=== PATIENT | female | born 1960 | race Caucasian/White ===

== ENCOUNTER 2016-10-23 09:15 | Outpatient (CLI) | payer OTHER | END 2016-10-23 09:16 | disposition home or self-care (01) | DX: E78.5 Hyperlipidemia, unspecified (principal) ==

== ENCOUNTER 2017-11-20 09:08 | Emergency (ER) | payer OTHER ==
[2017-11-20] MEDS ORDERED: ONDANSETRON ODT 4 MG TABLET TL STA (10:40)
[2017-11-20 10:41] LABS: BILIRUBIN,URINE NEGATIVE (NEGATIVE); GLUCOSE, URINE (UA) NEGATIVE (NEGATIVE); KETONES,URINE (UA) TRACE mg/dL (NEGATIVE); LEUKOCYTE ESTERASE, URINE NEGATIVE (NEGATIVE); NITRITE,URINE NEGATIVE (NEGATIVE); OCCULT BLOOD,URINE LARGE (NEGATIVE); PH,URINE 5.5 PH (5.0-7.5); PROTEIN,URINE 100 mg/dL (NEGATIVE); UROBILINOGEN,URINE 0.2 (NORMAL) E.U./dL (NORMAL)
[2017-11-20 10:47] LABS: CLARITY,URINE HAZY (CLEAR)
[2017-11-20 10:56] LABS: BACTERIA,URINE Moderate /HPF (None Seen); RBC,URINE TNTC /HPF (0-5); SQUAMOUS EPITHELIAL CELL,UR RARE Squamous (<= Few)
[2017-11-20 11:02] LABS: BASOPHILS # (AUTO) 0.1 10^3/uL (0.0-0.1); BASOPHILS % (AUTO) 0.4 %; EOSINOPHILS % (AUTO) 0.4 %; HGB - HEMOGLOBIN 15.1 g/dL (12.0-16.0); LYMPHOCYTES # (AUTO) 1.9 10^3/uL (1.5-3.5); LYMPHOCYTES % (AUTO) 14.9 %; MEAN CORPUSCULAR HEMOGLOBIN 28.9 pg (27.0-31.0); MEAN CORPUSCULAR HGB CONC 34.1 g/dL (32.0-36.0); MEAN CORPUSCULAR VOLUME 84.6 fL (81.0-99.0); MEAN PLATELET VOLUME 7.8 fL (7.9-10.8); MONOCYTES # (AUTO) 0.5 10^3/uL (0.0-1.0); MONOCYTES % (AUTO) 3.8 %; NEUTROPHILS # (AUTO) 10.2 10^3/uL (1.5-6.6); NEUTROPHILS % (AUTO) 80.5 %; PLT - PLATELET COUNT 249 10^3/uL (130-450); RED BLOOD COUNT 5.25 10^6/uL (4.20-5.40); RED CELL DISTRIBUTION WIDTH 13.3 % (12.0-15.0); WHITE BLOOD COUNT 12.6 x10^3/uL (4.8-10.8)
[2017-11-20 11:14] LABS: ALBUMIN 4.7 g/dL (3.2-5.5); ALBUMIN/GLOBULIN RATIO 1.3 (1.0-2.2); BILIRUBIN,TOTAL 0.7 mg/dL (0.2-1.0); CALCIUM 9.8 mg/dL (8.5-10.3); CREATININE 0.8 mg/dL (0.4-1.0); TOTAL PROTEIN 8.2 g/dL (6.7-8.2)
[2017-11-20] MEDS ORDERED: KETOROLAC 60 MG/2 ML VIAL IVP STA ×2 (11:21→14:00)
[2017-11-20] MEDS ORDERED: ONDANSETRON 4 MG/2 ML VIAL IVP STA (11:21)
[2017-11-20] MEDS ORDERED: SODIUM CHLORIDE 0.9% 1,000 ML IV ONE (11:21)
[2017-11-20] MEDS ORDERED: cefTRIAXone 1 GM in SODIUM CHLORIDE 0.9% MINIBAG 100 ML IV STA (11:22)
--- NOTE | 2017-11-20 11:25 | ED Physician Documentation ---
PD HPI ABD PAIN - Stated complaint Stated Complaint: VOMITING/BACK PX/KIDNEY PX - Chief complaint Chief Complaint: Abd Pain - History obtained from History obtained from: Patient - History of Present Illness Timing - onset: Yesterday Timing - duration: Hours Timing - details: Gradual onset, Still present Quality: Cramping, Sharp, Pain Location: RUQ, Suprapubic Radiation: Right flank Improved by: Other (nothing) Worsened by: Other (nothing) Associated symptoms: Nausea, Vomiting, Hematuria Similar symptoms before: Diagnosis (renal lithiasis) Recently seen: Not recently seen - Additional information Additional information: 49-year-old female with a prior history of renal lithiasis has developed symptoms of right flank pain and hematuria. She has had some nausea and vomiting associated with this and she has not had a fever. She did have her 1 cm stone removed and a stent placed back in July and has resolved her symptoms associated with that episode. Review of Systems Constitutional: denies: Fever, Chills Eyes: denies: Decreased vision Ears: denies: Ear pain Nose: denies: Congestion Throat: denies: Sore throat Cardiac: denies: Chest pain / pressure, Palpitations Respiratory: denies: Dyspnea, Cough GI: reports: Abdominal Pain, Nausea, Vomiting : reports: Hematuria. denies: Dysuria, Frequency Skin: denies: Rash, Lesions Musculoskeletal: reports: Back pain. 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 - Present Medications Home Medications: Ambulatory Orders Medication Instructions Recorded Confirmed HYDROcod/ACETAM 5/325 [[place] 5/325] 1 - 2 ea PO Q6H PRN #15 tablet 07/15/1704/24 Ibuprofen [Motrin] 400 mg PO Q6H PRN #30 tablet 07/15/17 07/16/17 Pravastatin [Pravachol] 1 tab PO DAILY 07/15/17 07/16/17 Tamsulosin [Flomax] 0.4 mg PO DAILY #7 capsule 07/15/17 07/16/17 Ketorolac [Toradol] 10 mg PO Q6H PRN #30 tablet 07/16/17 oxyCODONE [Roxicodone] 5 mg PO Q4-6H #10 tablet 11/08/17 Sulfamethoxazole/Trimethoprim 1 each PO BID #14 tablet 11/20/17 [Sulfamethoxazole-Tmp Ds Tablet] oxyCODONE [Roxicodone] 5 mg PO Q4-6H #20 tablet 11/20/17 - Allergies Allergies/Adverse Reactions: Allergies Allergy/AdvReac Type Severity Reaction Status Date / Time No Known Drug Allergies Allergy Verified 11/20/17 09:17 - Social History Does the pt smoke?: No Smoking Status: Never smoker Does the pt drink ETOH?: No Does the pt have substance abuse?: No PD ED PE NORMAL - Vitals Vital signs reviewed: Yes (hypertensive mild ) - General General: No acute distress, Well developed/nourished - HEENT HEENT: Atraumatic, PERRL, EOMI - Neck Neck: Supple, no meningeal sign - Cardiac Cardiac: RRR, No murmur - Respiratory Respiratory: No respiratory distress - Abdomen Abdomen: Soft, Non tender - Back Back: No spinal TTP, Other (bilateral CVA tenderness is mild ) - Derm Derm: Normal color, Warm and dry, No rash - Extremities Extremities: No deformity, No edema - Neuro Neuro: Alert and oriented X 3, No motor deficit, No sensory deficit, Normal speech Eye Opening: Spontaneous Motor: Obeys Commands Verbal: Oriented GCS Score: 15 - Psych Psych: Normal mood, Normal affect Results - Vitals Vitals: Vital Signs - 24 hr 11/20/17 11/20/17 11/20/17 09:12 11:06 13:42 Temperature 36.6 C 36.3 C L 37.5 C Heart Rate 88 57 L 74 Respiratory 20 19 16 Rate Blood Pressure 128/82 H 135/68 H 147/68 H O2 Saturation 98 99 100 Oxygen O2 Source Room air - Labs Labs: Laboratory Tests 11/20/17 11/20/17 11/20/17 10:25 10:58 10:58 WBC 12.6 H RBC 5.25 Hgb 15.1 Hct 44.4 MCV 84.6 MCH 28.9 MCHC 34.1 RDW 13.3 Plt Count 249 MPV 7.8 L Neut # 10.2 H Lymph # 1.9 [place] # 0.5 Eos # 0.0 Baso # 0.1 Absolute Nucleated RBC 0.00 Nucleated RBC % 0.0 Sodium 139 Potassium 3.9 Chloride 102 Carbon Dioxide 23 Anion Gap 14.0 H BUN 20 Creatinine 0.8 Estimated GFR (MDRD) 74 L Glucose 138 H Calcium 9.8 Total Bilirubin 0.7 AST 26 ALT 25 Alkaline Phosphatase 76 Total Protein 8.2 Albumin 4.7 Globulin 3.5 Albumin/Globulin Ratio 1.3 Lipase 19 L Urine Color DARK YELLOW Urine Clarity HAZY Urine pH 5.5 Ur Specific [place] >=1.030 H Urine Protein 100 H Urine Glucose (UA) NEGATIVE Urine Ketones TRACE Urine Occult Blood LARGE H Urine Nitrite NEGATIVE Urine Bilirubin NEGATIVE Urine Urobilinogen 0.2 (NORMAL) Ur Leukocyte Esterase NEGATIVE Urine RBC TNTC H Urine WBC 0-3 Ur Squamous Epith Cells RARE Squamous Urine Bacteria Moderate H Ur Microscopic Review INDICATED Urine Culture Comments INDICATED - Rads (name of study) CT abd/pel without Radiology: Prelim report reviewed (Impression: 1. There is a calculus in the distal right ureter with associated right hydronephrosis and hydroureter. There are 2 tiny nonobstructing calculi in the left kidney.), EMP read indepedently, See rad report PD MEDICAL DECISION MAKING - ED course Complexity details: reviewed old records, reviewed results, re-evaluated patient , considered differential, d/w patient, d/w family ED course: 49-year-old female with a history of recurrent renal lithiasis and ureteral lithiasis has developed acute signs and symptoms again of ureterolithiasis. She does have a 4.2 mm stone in the right distal ureter. Here in the emergency department she is treated with intravenous saline and Toradol with improvement in her pain. She is also given a dose of Rocephin intravenously as there is a fair amount of bacteria in this otherwise usable sample. There are no white blood cells in the urine. A culture is being done. Departure - Departure Disposition: 01 Home, Self Care Clinical Impression: Ureterolithiasis Condition: Stable Instructions: ED Stone Renal W Colic Follow-Up: Trent Tiwari DO [Primary Care Provider] - Prescriptions: oxyCODONE [Roxicodone] 5 mg PO Q4-6H #20 tablet Sulfamethoxazole/Trimethoprim [Sulfamethoxazole-Tmp Ds Tablet] 1 each PO BID # 14 tablet
--- NOTE | 2017-11-20 12:02 | CT Report ---
EXAM: CT ABDOMEN AND PELVIS (CT KUB) EXAM DATE: 11/20/2017 11:42 AM. CLINICAL HISTORY: Right flank pain. COMPARISONS: 07/15/2017. TECHNIQUE: Routine axial helical CT imaging was performed through the abdomen and pelvis without IV c ontrast. Reconstructions: Coronal and sagittal. In accordance with CT protocol optimization, one or more of the following dose reduction techniques w ere utilized for this exam: automated exposure control, adjustment of mA and/or KV based on patient s ize, or use of iterative reconstructive technique. FINDINGS: Lung Bases: Unremarkable. Right Kidney/Ureter: There is a calculus measuring approximately 0.3 x 0.7 cm in the distal right ure ter series 5 image 86 and series 3 image 73. There is mild to moderate right hydronephrosis and hydro ureter. Left Kidney/Ureter: There is a tiny nonobstructing calculus in the left kidney series 3 image 42 and another on series 5 image 36. Negative for hydronephrosis. Other Solid Organs: Noncontrast images of the solid organs are grossly unremarkable. Gallbladder/Bile Ducts: Unremarkable. Peritoneal Cavity: No free fluid, free air or enedelia adenopathy. Bowel is grossly unremarkable. Pelvic Organs: No bladder stones or wall thickening. Noncontrast images of the visualized pelvic orga ns are unremarkable. Vasculature: Unremarkable. Other: Stable small sclerotic lesion in the anterior aspect of L3 measuring 0.5 cm. IMPRESSION: 1. There is a calculus in the distal right ureter with associated right hydronephrosis and hydrourete r. 2. There are 2 tiny nonobstructing calculi in the left kidney. [facility] Referring Provider Line: [phone] SITE ID: [id number]
[2017-11-20 14:30] VITALS: BP 144/68
== END 2017-11-20 15:15 | disposition home or self-care (01) ==
LOC: ED 09:08
DX: N13.2 Hydronephrosis with renal and ureteral calculous obstruction (principal)
CPT/HCPCS: 36415; 74176; 80053; 81001; 83690; 85025; 87086; 96361; 96365; 96375; 96376; 99283; 99284; Q0162; 81003

== ENCOUNTER 2018-01-29 15:27 | Outpatient (CLI) | payer OTHER | END 2018-01-29 15:28 | LOC: LAB.WCP 15:27 | PROVIDERS: ATTEND Family Medicine | DX: R35.0 Frequency of micturition (principal) | CPT/HCPCS: 87086 ==

== ENCOUNTER 2018-02-09 08:01 | Outpatient (CLI) | payer OTHER ==
[2018-02-09 08:19] LABS: BASOPHILS % (AUTO) 0.5 %; EOSINOPHILS # (AUTO) 0.2 10^3/uL (0.0-0.7); EOSINOPHILS % (AUTO) 3.2 %; HGB - HEMOGLOBIN 14.2 g/dL (12.0-16.0); LYMPHOCYTES # (AUTO) 1.7 10^3/uL (1.5-3.5); LYMPHOCYTES % (AUTO) 26.5 %; MEAN CORPUSCULAR HEMOGLOBIN 29.5 pg (27.0-31.0); MEAN CORPUSCULAR HGB CONC 34.2 g/dL (32.0-36.0); MEAN CORPUSCULAR VOLUME 86.1 fL (81.0-99.0); MEAN PLATELET VOLUME 7.7 fL (7.9-10.8); MONOCYTES # (AUTO) 0.4 10^3/uL (0.0-1.0); MONOCYTES % (AUTO) 5.5 %; NEUTROPHILS # (AUTO) 4.2 10^3/uL (1.5-6.6); NEUTROPHILS % (AUTO) 64.3 %; PLT - PLATELET COUNT 217 10^3/uL (130-450); RED BLOOD COUNT 4.81 10^6/uL (4.20-5.40); RED CELL DISTRIBUTION WIDTH 13.4 % (12.0-15.0); WHITE BLOOD COUNT 6.5 x10^3/uL (4.8-10.8)
[2018-02-09 08:35] LABS: ALBUMIN 4.1 g/dL (3.2-5.5); ALBUMIN/GLOBULIN RATIO 1.4 (1.0-2.2); ALKALINE PHOSPHATASE 69 IU/L (42-121); ALT ALANINE AMINOTRANSFERASE 23 IU/L (10-60); AST ASPARTATE AMINOTRANSFERASE 21 IU/L (10-42); BILIRUBIN,TOTAL 0.5 mg/dL (0.2-1.0); BUN - BLOOD UREA NITROGEN 17 mg/dL (6-20); CALCIUM 8.9 mg/dL (8.5-10.3); CARBON DIOXIDE - CO2 29 mmol/L (21-32); CHLORIDE 101 mmol/L (101-111); CHOL/HDL RATIO 4.4 (<4.4); CHOLESTEROL 209 mg/dL; CREATININE 0.8 mg/dL (0.4-1.0); GFR - MDRD 74 (>89); GLUCOSE 107 mg/dL (70-100); HB2 TOTAL 15.4 g/dL; HDL CHOLESTEROL 48 mg/dL; HEMOGLOBIN A1C 0.56 g/dL; HEMOGLOBIN A1C % 5.5 % (4.6-6.2); LDL CHOLESTEROL,CALCULATED 124 mg/dL; LDL/HDL RATIO 2.6 (<4.4); SODIUM 136 mmol/L (135-145); TOTAL PROTEIN 7.1 g/dL (6.7-8.2); VLDL CHOLESTEROL 37 mg/dL
== END 2018-02-09 08:02 | disposition home or self-care (01) ==
LOC: LAB 08:01
PROVIDERS: ATTEND Family Medicine
DX: Z00.00 Encounter for general adult medical examination without abnormal findings (principal)
CPT/HCPCS: 36415; 80053; 80061; 83036; 83721; 84443; 85025

== ENCOUNTER 2018-04-22 08:34 | Day surgery (SDC) | payer OTHER ==
[2018-04-22] MEDS ORDERED: MIDAZOLAM 2 MG/2 ML VIAL IVP ONE (08:35)
[2018-04-22] MEDS ORDERED: ONDANSETRON 4 MG/2 ML VIAL IVP ONE (08:35)
[2018-04-22] MEDS ORDERED: fentaNYL 250 MCG/5 ML VIAL IVP ONE (08:35)
[2018-04-22] MEDS ORDERED: LACTATED RINGERS 1,000 ML IV ONE (08:50)
[2018-04-22 11:54] VITALS: BP 132/88
== END 2018-04-22 08:35 | disposition home or self-care (01) ==
LOC: SDS 08:34
PROVIDERS: ATTEND Internal Medicine
PROC: 0DBL8ZZ Excision of Transverse Colon, Via Natural or Artificial Opening Endoscopic (ICD-10-PCS; 2018-04-22)
PROC: 0DBL8ZZ Excision of Transverse Colon, Via Natural or Artificial Opening Endoscopic (ICD-10-PCS; principal; 2018-04-22 10:00)
DX: Z12.11 Encounter for screening for malignant neoplasm of colon (principal); Z80.0 Family history of malignant neoplasm of digestive organs; D12.3 Benign neoplasm of transverse colon; K64.8 Other hemorrhoids
CPT/HCPCS: 45380; 45385; J3010; J7120

== ENCOUNTER 2018-09-11 09:25 | Outpatient (CLI) | payer OTHER ==
[2018-09-11 10:33] LABS: ALBUMIN 4.2 g/dL (3.2-5.5); ALBUMIN/GLOBULIN RATIO 1.2 (1.0-2.2); ALKALINE PHOSPHATASE 74 IU/L (42-121); ALT ALANINE AMINOTRANSFERASE 29 IU/L (10-60); AST ASPARTATE AMINOTRANSFERASE 23 IU/L (10-42); BILIRUBIN,TOTAL 1.1 mg/dL (0.2-1.0); BUN - BLOOD UREA NITROGEN 16 mg/dL (6-20); CALCIUM 9.2 mg/dL (8.5-10.3); CARBON DIOXIDE - CO2 29 mmol/L (21-32); CHLORIDE 100 mmol/L (101-111); CHOL/HDL RATIO 3.7 (<4.4); CHOLESTEROL 211 mg/dL; CREATININE 0.7 mg/dL (0.4-1.0); GFR - MDRD 86 (>89); GLUCOSE 104 mg/dL (70-100); HDL CHOLESTEROL 57 mg/dL; LDL CHOLESTEROL,CALCULATED 123 mg/dL; LDL/HDL RATIO 2.2 (<4.4); SODIUM 137 mmol/L (135-145); TOTAL PROTEIN 7.6 g/dL (6.7-8.2); VLDL CHOLESTEROL 31 mg/dL
[2018-09-11 11:46] LABS: HB2 TOTAL 15.8 g/dL; HEMOGLOBIN A1C 0.55 g/dL; HEMOGLOBIN A1C % 5.3 % (4.6-6.2)
== END 2018-09-11 09:26 | disposition home or self-care (01) ==
LOC: LAB 09:25
PROVIDERS: ATTEND Family Medicine
DX: R73.01 Impaired fasting glucose (principal); E78.5 Hyperlipidemia, unspecified; E03.9 Hypothyroidism, unspecified
CPT/HCPCS: 36415; 80053; 80061; 83036; 83721; 84443

== ENCOUNTER 2018-09-29 14:23 | Outpatient (CLI) | payer OTHER | END 2018-09-29 14:24 | disposition home or self-care (01) | LOC: NS 14:23 | PROVIDERS: ATTEND Family Medicine | DX: Z71.3 Dietary counseling and surveillance (principal); E78.5 Hyperlipidemia, unspecified; N20.0 Calculus of kidney | CPT/HCPCS: 97802 ==

== ENCOUNTER 2018-10-20 13:04 | Outpatient (CLI) | payer OTHER | END 2018-10-20 13:05 | disposition home or self-care (01) | LOC: NS 13:04 | PROVIDERS: ATTEND Family Medicine | DX: Z71.3 Dietary counseling and surveillance (principal); E78.5 Hyperlipidemia, unspecified; N20.0 Calculus of kidney | CPT/HCPCS: 97803 ==

== ENCOUNTER 2018-12-08 13:01 | Outpatient (CLI) | payer OTHER | END 2018-12-08 13:02 | disposition home or self-care (01) | LOC: NS 13:01 | PROVIDERS: ATTEND Family Medicine | DX: Z71.3 Dietary counseling and surveillance (principal); E78.5 Hyperlipidemia, unspecified; N20.0 Calculus of kidney | CPT/HCPCS: 97803 ==

== ENCOUNTER 2019-02-23 13:57 | Outpatient (CLI) | payer OTHER ==
--- NOTE | 2019-02-23 14:43 | XRAY Report ---
Reason: RENAL CALCULUS Procedure Date: 02/23/2019 Accession Number: [id number] / [id number] Procedure: XR - Abdomen 1 View X-Ray CPT Code: 89857 FULL RESULT: EXAM: ABDOMEN RADIOGRAPHY EXAM DATE: 02/23/2019 02:22 PM. CLINICAL HISTORY: RENAL CALCULUS. COMPARISON: ABDOMEN 1 VIEW 01/29/2018 3:41 PM. TECHNIQUE: 1 view. FINDINGS: Bowel Gas Pattern: Within normal limits. No dilated loops. Other: None. IMPRESSION: No candidate calcifications suspicious for renal calculi are identified. Previously seen linear calcification projecting over the pelvis has resolved. [facility]
== END 2019-02-23 13:58 | disposition home or self-care (01) ==
LOC: DI 13:57
PROVIDERS: ATTEND Urology
DX: N20.0 Calculus of kidney (principal)
CPT/HCPCS: 74018

== ENCOUNTER 2019-06-14 08:00 | Outpatient (CLI) | payer OTHER | END 2019-06-14 23:59 | disposition home or self-care (01) | LOC: LAB.WCP 08:00 | PROVIDERS: ATTEND Family Medicine | DX: M25.511 Pain in right shoulder (principal); M25.512 Pain in left shoulder | CPT/HCPCS: 36415; 85651; 86140 ==

== ENCOUNTER 2019-10-07 08:00 | Outpatient (CLI) | payer OTHER ==
--- NOTE | 2019-10-07 16:47 | XRAY Report ---
Reason: COUGH Procedure Date: 10/07/2019 Accession Number: [id number] / [id number] Procedure: WCP - Chest 2 View X-Ray CPT Code: 48518 Final Report FULL RESULT: EXAM: CHEST RADIOGRAPHY 2 VIEWS EXAM DATE: 10/07/2019. CLINICAL HISTORY: Cough. COMPARISON: PA and lateral chest on 01/09/2018. TECHNIQUE: PA and lateral views. FINDINGS: Lungs/Pleura: Normal vasculature. The lungs are clear. No pleural fluid or pneumothorax. Mediastinum: Normal cardiac and mediastinal contours. Bones: Mild degenerative changes of the spine. IMPRESSION: Normal examination. No change from 01/09/2018. [facility]
== END 2019-10-07 08:01 | disposition home or self-care (01) ==
LOC: DI.WCP 08:00
PROVIDERS: ATTEND Family Medicine
DX: R05 Cough (principal)
CPT/HCPCS: 71046

== ENCOUNTER 2019-11-22 10:01 | Outpatient (CLI) | payer OTHER ==
--- NOTE | 2019-11-22 16:20 | CT Report ---
Reason: CHRONIC COUGH Procedure Date: 11/22/2019 Accession Number: [id number] / [id number] Procedure: CT - CHEST WO CPT Code: Final Report FULL RESULT: EXAM: CT CHEST EXAM DATE: 11/22/2019 10:26 AM. CLINICAL HISTORY: Chronic cough. COMPARISONS: CHEST 2 VIEW 10/07/2019 11:28 AM. TECHNIQUE: Routine helical CT imaging was performed through the chest. IV contrast: None. Reconstructions: Coronal and sagittal. In accordance with CT protocol optimization, one or more of the following dose reduction techniques were utilized for this exam: automated exposure control, adjustment of mA and/or KV based on patient size, or use of iterative reconstructive technique. FINDINGS: Lungs/Pleura: No nodules, bronchial thickening, consolidation, or edema. Pulmonary vasculature is normal. No pleural effusion. No pneumothorax. Trace pericardial effusion. Some minimal increased density seen in the lingular segment of the left upper lobe. Series 4 image 136, series 8 image 27. This is minor. Mediastinum: Normal. No adenopathy or masses. The heart and great vessels are normal. Bones: Unremarkable. Visualized Abdomen: Unremarkable. Other: None. IMPRESSION: 1. Some minimal slight increased density lingular segment left upper lobe, this may be a small amount of atelectasis. No infiltrate, no hazy "groundglass" appearance. [facility]
== END 2019-11-22 10:02 | disposition home or self-care (01) ==
LOC: DI 10:01
PROVIDERS: ATTEND Family Medicine
DX: R91.8 Other nonspecific abnormal finding of lung field (principal)
CPT/HCPCS: 71250

== ENCOUNTER 2020-07-08 07:00 | Outpatient (CLI) | payer OTHER ==
--- NOTE | 2020-07-08 11:59 | XRAY Report ---
PROCEDURE: Abdomen 1 View X-Ray INDICATIONS: HX OF KIDNEY STONES TECHNIQUE: 1 view of the abdomen were acquired. COMPARISON: 02/23/2019, 01/29/2018. Correlation is also made with CT examinations, 07/15/2017 and 11/20. FINDINGS: Surgical changes and devices: None. Bowel: No pneumoperitoneum. The bowel gas pattern is normal. Soft tissues: No masses; visualized solid organ contours appear normal in size. No suspicious abdom inal calcifications. Bones: No suspicious bony abnormalities. IMPRESSION: No suspicious calcifications are seen by plain film. If clinically appropriate, please consider a dedicated follow-up noncontrast CT of the abdomen and pe lvis for further evaluation. Reviewed by: Kirt Cross MD on 07/08/2020 10:58 AM [facility] Approved by: Kirt Cross MD on 07/08/2020 10:58 AM [facility] Station ID: [id number]
== END 2020-07-08 23:59 | disposition home or self-care (01) ==
LOC: DI 07:00
PROVIDERS: ATTEND Urology
DX: N20.0 Calculus of kidney (principal)
CPT/HCPCS: 74018

== ENCOUNTER 2021-05-19 07:28 | Emergency (ER) | payer OTHER ==
[2021-05-19] MEDS ORDERED: SODIUM CHLORIDE 0.9% 1,000 ML IV STA (08:07)
[2021-05-19] MEDS ORDERED: KETOROLAC 30 MG/ML VIAL IVP STA (08:07)
[2021-05-19 08:10] LABS: BASOPHILS % (AUTO) 0.3 %; EOSINOPHILS # (AUTO) 0.1 10^3/uL (0.0-0.7); HCT - HEMATOCRIT 43.4 % (37.0-47.0); HGB - HEMOGLOBIN 14.8 g/dL (12.0-16.0); LYMPHOCYTES # (AUTO) 1.5 10^3/uL (1.5-3.5); LYMPHOCYTES % (AUTO) 25.5 %; MEAN CORPUSCULAR HEMOGLOBIN 29.8 pg (27.0-31.0); MEAN CORPUSCULAR HGB CONC 34.1 g/dL (32.0-36.0); MEAN CORPUSCULAR VOLUME 87.5 fL (81.0-99.0); MONOCYTES # (AUTO) 0.3 10^3/uL (0.0-1.0); MONOCYTES % (AUTO) 4.2 %; NEUTROPHILS # (AUTO) 4.1 10^3/uL (1.5-6.6); PLT - PLATELET COUNT 241 10^3/uL (130-450); RED BLOOD COUNT 4.96 10^6/uL (4.20-5.40); RED CELL DISTRIBUTION WIDTH 12.5 % (12.0-15.0)
--- NOTE | 2021-05-19 08:11 | ED Physician Documentation ---
PD HPI ABD PAIN - Stated complaint Stated Complaint: BACK PAIN/NAUSEA/DIARRHEA - Chief complaint Chief Complaint: Abd Pain - History obtained from History obtained from: Patient - History of Present Illness Timing - onset: Yesterday Timing - duration: Days (2) Timing - details: Gradual onset, Still present Quality: Cramping, Sharp, Pain Location: LLQ Radiation: Lower back Improved by: Laying still Worsened by: Moving, Position, Palpation Associated symptoms: Nausea, Diarrhea, Loss of appetite. No: Vomiting Similar symptoms before: Has not had sx before Recently seen: Not recently seen - Additional information Additional information: 61-year-old female with a history of renal lithiasis has developed some left lower quadrant abdominal pain beginning yesterday. She has worse pain if she is up walking around and she is better if she is laying still. She indicates that she is grieving the loss of her brother to a long fay with cancer. She initially had some symptoms of nausea and then developed some diarrhea which she has had for 2 days. She has not had fever with this. The pain is atypical for her and different than she has had for either pyelo or the stones. Review of Systems Constitutional: denies: Fever Eyes: denies: Decreased vision Ears: denies: Ear pain Nose: reports: Congestion (resolved). denies: Rhinorrhea / runny nose Throat: denies: Sore throat Cardiac: denies: Chest pain / pressure, Palpitations Respiratory: denies: Dyspnea, Cough GI: reports: Abdominal Pain, Nausea, Diarrhea. 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 - Present Medications Home Medications: Ambulatory Orders Medication Instructions Recorded Confirmed Pravastatin [Pravachol] 20 mg PO DAILY 07/15/17 04/21/18 Levothyroxine [Synthroid] 50 mcg PO QDAC 04/21/18 04/21/18 metroNIDAZOLE 0.75% GEL [(None)] 45 applic TOP DAILY 04/21/18 04/21/18 LORazepam [Ativan] 1 mg PO Q6HR PRN #14 tablet 05/19/21 - Allergies Allergies/Adverse Reactions: Allergies Allergy/AdvReac Type Severity Reaction Status Date / Time No Known Drug Allergies Allergy Verified 05/19/21 07:38 - Social History Does the pt smoke?: No Smoking Status: Never smoker Does the pt drink ETOH?: No Does the pt have substance abuse?: No PD ED PE NORMAL - Vitals Vital signs reviewed: Yes (hypertensive ) - General General: Alert and oriented X 3, No acute distress, Well developed/nourished - HEENT HEENT: Atraumatic, PERRL, EOMI - Respiratory Respiratory: No respiratory distress - Abdomen Abdomen: Normal bowel sounds, Soft, Non distended, No organomegaly, Other (LLQ tenderness without garding or rebound tenderness. No referred tenderness. ) - Back Back: No CVA TTP, No spinal TTP - Derm Derm: Normal color, Warm and dry, No rash - Extremities Extremities: No deformity, No edema - Neuro Neuro: Alert and oriented X 3, livestock agent 2-12 intact, No motor deficit, No sensory deficit, Normal speech Eye Opening: Spontaneous Motor: Obeys Commands Verbal: Oriented GCS Score: 15 - Psych Psych: Normal mood, Normal affect Results - Vitals Vitals: Vital Signs - 24 hr 05/19/21 05/19/21 05/19/21 07:35 08:23 09:57 Temperature 36.7 C Heart Rate 68 57 L 69 Respiratory 16 16 15 Rate Blood Pressure 148/67 H 147/71 H 170/84 H O2 Saturation 95 97 98 Oxygen O2 Source Room air - Labs Labs: Laboratory Tests 05/19/21 05/19/21 05/19/21 08:00 08:00 08:20 WBC 6.0 RBC 4.96 Hgb 14.8 Hct 43.4 MCV 87.5 MCH 29.8 MCHC 34.1 RDW 12.5 Plt Count 241 MPV 9.0 Neut # (Auto) 4.1 Lymph # (Auto) 1.5 [place] # (Auto) 0.3 Eos # (Auto) 0.1 Baso # (Auto) 0.0 Absolute Nucleated RBC 0.00 Nucleated RBC % 0.0 Sodium 140 Potassium 3.7 Chloride 103 Carbon Dioxide 26 Anion Gap 11.0 BUN 16 Creatinine 0.7 Estimated GFR (MDRD) 85 L Glucose 128 H Calcium 9.4 Total Bilirubin 1.0 AST 28 ALT 35 Alkaline Phosphatase 69 Total Protein 7.5 Albumin 4.5 Globulin 3.0 Albumin/Globulin Ratio 1.5 Lipase 27 Urine Color YELLOW Urine Clarity CLEAR Urine pH 6.5 Ur Specific [place] 1.020 Urine Protein NEGATIVE Urine Glucose (UA) NEGATIVE Urine Ketones 15 H Urine Occult Blood NEGATIVE Urine Nitrite NEGATIVE Urine Bilirubin NEGATIVE Urine Urobilinogen 0.2 (NORMAL) Ur Leukocyte Esterase SMALL H Urine RBC 0-5 Urine WBC 6-10 H Ur Epithelial Cells RARE Renal Tubular Ur Squamous Epith Cells MOD Squamous H Urine Bacteria Rare Ur Microscopic Review INDICATED Urine Culture Comments NOT INDICATED 05/19/21 10:04 WBC RBC Hgb Hct MCV MCH MCHC RDW Plt Count MPV Neut # (Auto) Lymph # (Auto) [place] # (Auto) Eos # (Auto) Baso # (Auto) Absolute Nucleated RBC Nucleated RBC % Sodium Potassium Chloride Carbon Dioxide Anion Gap BUN Creatinine Estimated GFR (MDRD) Glucose Calcium Total Bilirubin AST ALT Alkaline Phosphatase Total Protein Albumin Globulin Albumin/Globulin Ratio Lipase Urine Color YELLOW Urine Clarity CLEAR Urine pH 7.0 Ur Specific [place] 1.010 Urine Protein NEGATIVE Urine Glucose (UA) NEGATIVE Urine Ketones NEGATIVE Urine Occult Blood NEGATIVE Urine Nitrite NEGATIVE Urine Bilirubin NEGATIVE Urine Urobilinogen 0.2 (NORMAL) Ur Leukocyte Esterase NEGATIVE Urine RBC Urine WBC Ur Epithelial Cells Ur Squamous Epith Cells Urine Bacteria Ur Microscopic Review NOT INDICATED Urine Culture Comments NOT INDICATED - Rads (name of study) CT ab/pel w/o Radiology: Prelim report reviewed (Impression: 1. No obstructing kidney stone. No hydronephrosis. Punctate nonobstructing calculus in the left kidney. No diverticulosis. No free fluid.), EMP read indepedently, See rad report PD MEDICAL DECISION MAKING - ED course Complexity details: reviewed results, re-evaluated patient, considered differential, d/w patient ED course: 61-year-old female grieving the loss of her brother has not slept for nights and she has developed left lower quadrant abdominal pain. She has some tenderness on examination and a CT scan of the abdomen pelvis is unremarkable. She does not have any significant stool in the colon on the left side and there is no evidence of fat stranding or infection or inflammation. Her initial urinalysis had too many squamous cells to culture and a 2nd urinalysis is obtained. Departure - Departure Disposition: 01 Home, Self Care Clinical Impression: Stress reaction Abdominal pain Qualifiers: Abdominal location: left lower quadrant Qualified Code(s): R10.32 - Left lower quadrant pain Condition: Stable Instructions: ED Abdominal Pain Unkn Cause, ED Stress React, Lorazepam, ED Grief Reaction Follow-Up: Trent Tiwari DO [Primary Care Provider] - Prescriptions: LORazepam [Ativan] 1 mg PO Q6HR PRN #14 tablet PRN Reason: Insomnia
[2021-05-19] MEDS ORDERED: IOPAMIDOL-300 100 ML VIAL ONE (08:24)
[2021-05-19 08:33] LABS: ALBUMIN 4.5 g/dL (3.2-5.5); ALBUMIN/GLOBULIN RATIO 1.5 (1.0-2.2); CALCIUM 9.4 mg/dL (8.5-10.3); CREATININE 0.7 mg/dL (0.4-1.0); POTASSIUM 3.7 mmol/L (3.5-5.0); TOTAL PROTEIN 7.5 g/dL (6.7-8.2)
[2021-05-19 09:05] LABS: BILIRUBIN,URINE NEGATIVE (NEGATIVE); GLUCOSE, URINE (UA) NEGATIVE (NEGATIVE); KETONES,URINE (UA) 15 mg/dL (NEGATIVE); LEUKOCYTE ESTERASE, URINE SMALL (NEGATIVE); NITRITE,URINE NEGATIVE (NEGATIVE); OCCULT BLOOD,URINE NEGATIVE (NEGATIVE); PH,URINE 6.5 PH (5.0-7.5); PROTEIN,URINE NEGATIVE (NEGATIVE); UROBILINOGEN,URINE 0.2 (NORMAL) E.U./dL (NORMAL)
[2021-05-19 09:16] LABS: CLARITY,URINE CLEAR (CLEAR)
[2021-05-19 09:17] LABS: BACTERIA,URINE Rare /HPF (None Seen); RBC,URINE 0-5 /HPF (0-5); SQUAMOUS EPITHELIAL CELL,UR MOD Squamous (<= Few)
[2021-05-19 09:18] LABS: EPITHELIAL CELLS,UR RARE Renal Tubular /HPF (<= Few)
--- NOTE | 2021-05-19 09:40 | CT Report ---
PROCEDURE: Abdomen/Pelvis WO INDICATIONS: LLQ PAIN TECHNIQUE: Noncontrast 5 mm thick sections acquired from the diaphragms to the symphysis. 5 mm coronal and sagi ttal reformats were then performed. For radiation dose reduction, the following was used: automated exposure control, adjustment of mA and/or kV according to patient size. COMPARISON: CT KUB 11/20/2017. FINDINGS: Image quality: Excellent. ABDOMEN: Lung bases: Lung bases are clear. Heart size is normal. Solid organs: Liver and spleen are normal in size. Hepatic steatosis. Gallbladder is not significan t distended. No calcified gallstones. Pancreas is normal in contours. No adrenal nodules. Kidneys are normal in size, without hydronephrosis. Punctate nonobstructing calculus in the mid left kidney. Possible additional punctate calculi in the inferior pole left kidney and right kidney. Peritoneum and bowel: Unenhanced bowel loops demonstrate normal wall thickness and caliber. Normal a ppendix. No diverticulosis. No free fluid or air. Nodes and vessels: No retroperitoneal or mesenteric adenopathy by size criteria. Aorta and inferior vena cava are normal in caliber. Miscellaneous: Tiny umbilical hernia. PELVIS: Genitourinary: Bladder wall thickness is normal. No stones. Miscellaneous: No definite inguinal hernias or adenopathy. Bones: No suspicious bony lesions. L3 bone island. No vertebral body compression fractures. IMPRESSION: 1. No obstructing kidney stone. No hydronephrosis. 2. Punctate nonobstructing calculus in the left kidney. 3. No diverticulosis. No free fluid. Reviewed by: Addi Sidhu MD on 05/19/2021 8:39 AM [facility] Approved by: Addi Sidhu MD on 05/19/2021 8:39 AM [facility] Station ID: [id number]
[2021-05-19 10:20] LABS: BILIRUBIN,URINE NEGATIVE (NEGATIVE); GLUCOSE, URINE (UA) NEGATIVE (NEGATIVE); KETONES,URINE (UA) NEGATIVE (NEGATIVE); LEUKOCYTE ESTERASE, URINE NEGATIVE (NEGATIVE); NITRITE,URINE NEGATIVE (NEGATIVE); OCCULT BLOOD,URINE NEGATIVE (NEGATIVE); PROTEIN,URINE NEGATIVE (NEGATIVE); UROBILINOGEN,URINE 0.2 (NORMAL) E.U./dL (NORMAL)
[2021-05-19 10:41] LABS: CLARITY,URINE CLEAR (CLEAR)
[2021-05-19 11:07] VITALS: BP 145/73
== END 2021-05-19 11:07 | disposition home or self-care (01) ==
LOC: ED 07:28
DX: F43.9 Reaction to severe stress, unspecified (principal); R10.32 Left lower quadrant pain; R11.0 Nausea; R19.7 Diarrhea, unspecified
CPT/HCPCS: 36415; 80053; 81001; 81003; 83690; 85025; 87086; 96374; 99284

== ENCOUNTER 2021-06-12 09:04 | Outpatient (CLI) | payer OTHER ==
[2021-06-12 09:18] LABS: BASOPHILS % (AUTO) 0.6 %; EOSINOPHILS # (AUTO) 0.2 10^3/uL (0.0-0.7); EOSINOPHILS % (AUTO) 3.4 %; HCT - HEMATOCRIT 45.7 % (37.0-47.0); HGB - HEMOGLOBIN 15.2 g/dL (12.0-16.0); LYMPHOCYTES # (AUTO) 1.8 10^3/uL (1.5-3.5); LYMPHOCYTES % (AUTO) 33.4 %; MEAN CORPUSCULAR HEMOGLOBIN 29.3 pg (27.0-31.0); MEAN CORPUSCULAR HGB CONC 33.3 g/dL (32.0-36.0); MEAN CORPUSCULAR VOLUME 88.1 fL (81.0-99.0); MEAN PLATELET VOLUME 9.6 fL (7.9-10.8); MONOCYTES # (AUTO) 0.3 10^3/uL (0.0-1.0); NEUTROPHILS % (AUTO) 56.4 %; PLT - PLATELET COUNT 222 10^3/uL (130-450); RED BLOOD COUNT 5.19 10^6/uL (4.20-5.40); RED CELL DISTRIBUTION WIDTH 12.6 % (12.0-15.0); WHITE BLOOD COUNT 5.4 x10^3/uL (4.8-10.8)
[2021-06-12 09:43] LABS: ALBUMIN 4.6 g/dL (3.2-5.5); ALBUMIN/GLOBULIN RATIO 1.6 (1.0-2.2); ALKALINE PHOSPHATASE 71 IU/L (42-121); ALT ALANINE AMINOTRANSFERASE 25 IU/L (10-60); AST ASPARTATE AMINOTRANSFERASE 20 IU/L (10-42); BILIRUBIN,TOTAL 0.7 mg/dL (0.2-1.0); BUN - BLOOD UREA NITROGEN 17 mg/dL (6-20); CALCIUM 9.4 mg/dL (8.5-10.3); CARBON DIOXIDE - CO2 28 mmol/L (21-32); CHLORIDE 104 mmol/L (101-111); CHOLESTEROL 214 mg/dL; CREATININE 0.8 mg/dL (0.4-1.0); GFR - MDRD 73 (>89); GLUCOSE 118 mg/dL (70-100); HDL CHOLESTEROL 53 mg/dL; LDL CHOLESTEROL,CALCULATED 135 mg/dL; LDL/HDL RATIO 2.5 (<4.4); POTASSIUM 4.1 mmol/L (3.5-5.0); SODIUM 141 mmol/L (135-145); TOTAL PROTEIN 7.4 g/dL (6.7-8.2); TRIGLYCERIDES 131 mg/dL; VLDL CHOLESTEROL 26 mg/dL
[2021-06-12 09:54] LABS: THYROID STIMULATING HORMONE 2.91 uIU/mL (0.34-5.60)
[2021-06-12 12:42] LABS: ESTIMATED AVERAGE GLUCOSE 105 mg/dL (70-100); HEMOGLOBIN A1c% 5.3 % (4.27-6.07)
== END 2021-06-12 09:05 | disposition home or self-care (01) ==
LOC: LAB 09:04
PROVIDERS: ATTEND Family Medicine
DX: Z00.00 Encounter for general adult medical examination without abnormal findings (principal); R73.01 Impaired fasting glucose; E78.5 Hyperlipidemia, unspecified; E03.9 Hypothyroidism, unspecified
CPT/HCPCS: 36415; 80053; 80061; 83036; 83721; 84443; 85025

== ENCOUNTER 2021-09-14 09:13 | Day surgery (SDC) | payer OTHER ==
[2021-09-14] MEDS ORDERED: LACTATED RINGERS 1,000 ML IV ONE ×2 (09:23→12:05)
--- NOTE | 2021-09-14 10:11 | ANESTHESIA ---
Pre-Anesthesia VS, & Labs - Diagnosis hx colon polyps - Procedure colonoscopy Vital Signs: Temp Pulse Resp BP Pulse Ox 36.7 C 82 20 160/74 H 94 09/14/21 09:22 09/14/21 09:22 09/14/21 09:22 09/14/21 09:22 09/14/21 09:22 Height: 5 ft 1 in Weight (kg): 94.4 kg Body Mass Index: 39.3 BMI Classification: Obese - NPO >8 hours - Is Patient ?: No - Lab Results Lab results reviewed: Yes Home Medications and Allergies Pravastatin [Pravachol] 20 mg PO DAILY 07/15/17 Levothyroxine [Synthroid] 50 mcg PO QDAC 04/21/18 Allergies/Adverse Reactions: Allergies Allergy/AdvReac Type Severity Reaction Status Date / Time No Known Drug Allergies Allergy Verified 09/14/21 09:58 Anes History & Medical History - Anesthetic History Anesthesia Complications: reports: No previous complications Family history of Anesthesia Complications: Denies Family history of Malignant Hyperthermia: Denies - Medical History Cardiovascular: reports: None, High cholesterol Pulmonary: reports: None Gastrointestinal: reports: None Urinary: reports: Kidney stones Musculoskeletal: reports: None Endocrine/Autoimmune: reports: HyPOthyroidism Skin: reports: Rosacea Smoking Status: Never smoker - Surgical History General: reports: Colonoscopy Urologic: reports: Ureterolithotomy (stones) Gynecologic: reports: section Exam General: Alert, Oriented x3, Cooperative Dental: WNL Mouth Openin Fingerbreadth Neck Mobility: Normal Mallampati classification: II Thyromental Distance: 4-6 cm Respiratory: Lungs clear, Normal breath sounds, No respiratory distress Cardiovascular: Regular rate Neurological: Normal speech Mental/Cognitive Status: Alert/Oriented X3, Normal for patient Cognitive Status: Within normal limits Plan Anesthesia Type: Total IV Consent for Procedure(s) Verified and Reviewed: Yes Code Status: Attempt Resuscitation ASA classification: 2-Mild systemic disease Is this case an emergency?: No
[2021-09-14] MEDS ORDERED: ONDANSETRON 4 MG/2 ML VIAL ONE (10:30)
[2021-09-14] MEDS ORDERED: PROPOFOL 500 MG/50 ML 500 MG/50 ML VIAL ONE (10:31)
[2021-09-14] MEDS ORDERED: MIDAZOLAM 2 MG/2 ML VIAL ONE (10:31)
[2021-09-14 12:34] VITALS: BP 129/68
--- NOTE | 2021-09-14 15:23 | ANESTHESIA POST OP EVALUATION ---
Anesthesia Post Eval - Post Anesthesia Eval Vitals: Last Vital Signs Temp 36.7 C 09/14/21 12:05 Pulse 74 09/14/21 12:33 Resp 22 09/14/21 12:33 BP 129/68 09/14/21 12:33 Pulse Ox 94 09/14/21 12:33 CV Function Including HR & BP: Stable Pain Control: Satisfactory Nausea & Vomiting: Negative Mental Status: Baseline Respiratory Status: Airway Patent Hydration Status: Satisfactory Anesthesia Complications: None
== END 2021-09-14 09:14 | disposition home or self-care (01) ==
LOC: SDS 09:13
PROVIDERS: ATTEND Surgery
PROC: 0DBL8ZX Excision of Transverse Colon, Via Natural or Artificial Opening Endoscopic, Diagnostic (ICD-10-PCS; 2021-09-14)
PROC: 0DBP8ZX Excision of Rectum, Via Natural or Artificial Opening Endoscopic, Diagnostic (ICD-10-PCS; 2021-09-14)
PROC: 0DBM8ZX Excision of Descending Colon, Via Natural or Artificial Opening Endoscopic, Diagnostic (ICD-10-PCS; 2021-09-14)
PROC: 0DBH8ZX Excision of Cecum, Via Natural or Artificial Opening Endoscopic, Diagnostic (ICD-10-PCS; principal; 2021-09-14 10:30)
DX: Z12.11 Encounter for screening for malignant neoplasm of colon (principal); D12.0 Benign neoplasm of cecum; D12.3 Benign neoplasm of transverse colon; K63.5 Polyp of colon; E66.9 Obesity, unspecified; Z68.39 Body mass index [BMI] 39.0-39.9, adult; Z80.0 Family history of malignant neoplasm of digestive organs; Z86.010 Personal history of colon polyps
CPT/HCPCS: 45385; J7120

== ENCOUNTER 2022-03-28 09:08 | Outpatient (CLI) | payer OTHER ==
[2022-03-28 09:25] LABS: BASOPHILS % (AUTO) 0.7 %; EOSINOPHILS # (AUTO) 0.1 10^3/uL (0.0-0.7); EOSINOPHILS % (AUTO) 1.6 %; HCT - HEMATOCRIT 43.7 % (37.0-47.0); LYMPHOCYTES # (AUTO) 1.8 10^3/uL (1.5-3.5); LYMPHOCYTES % (AUTO) 31.4 %; MEAN CORPUSCULAR HEMOGLOBIN 29.8 pg (27.0-31.0); MEAN CORPUSCULAR HGB CONC 34.3 g/dL (32.0-36.0); MEAN CORPUSCULAR VOLUME 86.7 fL (81.0-99.0); MEAN PLATELET VOLUME 9.5 fL (7.9-10.8); MONOCYTES # (AUTO) 0.3 10^3/uL (0.0-1.0); MONOCYTES % (AUTO) 5.2 %; NEUTROPHILS # (AUTO) 3.5 10^3/uL (1.5-6.6); NEUTROPHILS % (AUTO) 60.9 %; PLT - PLATELET COUNT 227 10^3/uL (130-450); RED BLOOD COUNT 5.04 10^6/uL (4.20-5.40); RED CELL DISTRIBUTION WIDTH 12.6 % (12.0-15.0); WHITE BLOOD COUNT 5.8 x10^3/uL (4.8-10.8)
[2022-03-28 09:45] LABS: ALBUMIN 4.3 g/dL (3.2-5.5); ALBUMIN/GLOBULIN RATIO 1.4 (1.0-2.2); ALKALINE PHOSPHATASE 68 IU/L (42-121); ALT ALANINE AMINOTRANSFERASE 23 IU/L (10-60); AST ASPARTATE AMINOTRANSFERASE 22 IU/L (10-42); BILIRUBIN,TOTAL 0.8 mg/dL (0.2-1.0); BUN - BLOOD UREA NITROGEN 15 mg/dL (6-20); CALCIUM 9.4 mg/dL (8.5-10.3); CARBON DIOXIDE - CO2 28 mmol/L (21-32); CHLORIDE 102 mmol/L (101-111); CHOL/HDL RATIO 3.2 (<4.4); CHOLESTEROL 176 mg/dL; CREATININE 0.7 mg/dL (0.4-1.0); GFR - MDRD 85 (>89); GLUCOSE 118 mg/dL (70-100); HDL CHOLESTEROL 55 mg/dL; LDL CHOLESTEROL,CALCULATED 91 mg/dL; LDL/HDL RATIO 1.7 (<4.4); POTASSIUM 3.9 mmol/L (3.5-5.0); SODIUM 139 mmol/L (135-145); TOTAL PROTEIN 7.4 g/dL (6.7-8.2); TRIGLYCERIDES 151 mg/dL; VLDL CHOLESTEROL 30 mg/dL
[2022-03-28 09:57] LABS: THYROID STIMULATING HORMONE 2.88 uIU/mL (0.34-5.60)
[2022-03-28 11:13] LABS: ESTIMATED AVERAGE GLUCOSE 111 mg/dL (70-100); HEMOGLOBIN A1c% 5.5 % (4.27-6.07)
== END 2022-03-28 09:09 | disposition home or self-care (01) ==
LOC: LAB 09:08
PROVIDERS: ATTEND Nurse Practitioner Family
DX: I10 Essential (primary) hypertension (principal); E66.9 Obesity, unspecified; E78.5 Hyperlipidemia, unspecified; E03.9 Hypothyroidism, unspecified
CPT/HCPCS: 36415; 80053; 80061; 83036; 83721; 84443; 85025

== ENCOUNTER 2022-07-25 08:00 | Outpatient (CLI) | payer OTHER | END 2022-07-25 23:59 | disposition home or self-care (01) | LOC: LAB 08:00 | PROVIDERS: ATTEND Nurse Practitioner Family | DX: J34.89 Other specified disorders of nose and nasal sinuses (principal) | CPT/HCPCS: 87070; 87181; 87205 ==

== ENCOUNTER 2022-08-29 05:08 | Emergency (ER) | payer OTHER ==
[2022-08-29 05:20] VITALS: BP 149/65
--- NOTE | 2022-08-29 05:26 | ED Physician Documentation ---
PD HPI CHEST PAIN - Stated complaint Stated Complaint: CHEST PX/COUGH - Chief complaint Chief Complaint: Resp - History obtained from History obtained from: Patient - History of Present Illness Timing - onset: How many weeks ago (1) Timing - details: Gradual onset Pain level now: 3 Quality: Aching, Pain Location: Other (across lower/mid anterior chest) Associated symptoms: Cough. No: Shortness of air, Palpitations Recently seen: Not recently seen - Additional information Additional information: HPI from patient. She c/o one week of cough , nonproductive. She has pain across lower/mid anterior chest distinctly associated with coughing. Denies fever, denies shortness of breath. was recently diagnosed with RSV. Review of Systems Constitutional: reports: Reviewed and negative Nose: reports: Reviewed and negative Throat: denies: Sore throat Cardiac: reports: Chest pain / pressure. denies: Palpitations, Pedal edema, Calf pain Respiratory: reports: Cough. 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: section - Present Medications Home Medications: Ambulatory Orders Medication Instructions Recorded Confirmed Pravastatin [Pravachol] 20 mg PO DAILY 07/15/17 09/14/21 Levothyroxine [Synthroid] 50 mcg PO QDAC 04/21/18 09/14/21 - Allergies Allergies/Adverse Reactions: Allergies Allergy/AdvReac Type Severity Reaction Status Date / Time No Known Drug Allergies Allergy Verified 08/29/22 05:20 - Social History Does the pt smoke?: No Smoking Status: Never smoker Does the pt drink ETOH?: No Does the pt have substance abuse?: No PD ED PE NORMAL - Vitals Vital signs reviewed: Yes - General General: Alert and oriented X 3, No acute distress, Well developed/nourished - Neck Neck: Supple, no meningeal sign - Cardiac Cardiac: RRR, No murmur - Respiratory Respiratory: No respiratory distress, Clear bilaterally PD ED PE EXPANDED - Eyes Eyes: Injected conj/sclera (bilateral) Results - Vitals Vitals: Vital Signs - 24 hr 08/29/22 05:17 Temperature 36.5 C Heart Rate 71 Respiratory 18 Rate Blood Pressure 149/65 H O2 Saturation 97 Oxygen O2 Source Room air - Labs Labs: Laboratory Tests 08/29/22 05:51 Nasal Adenovirus (PCR) NOT DETECTED Nasal B. parapertussis DNA (PCR) NOT DETECTED Nasal Coronavir 229E PCR NOT DETECTED Nasal Coronavir HKU1 PCR NOT DETECTED Nasal Coronavir NL63 PCR NOT DETECTED Nasal Coronavir OC43 PCR NOT DETECTED Nasal Enterovir/Rhinovir PCR NOT DETECTED Nasal Influenza B PCR NOT DETECTED Nasal Influenza A PCR NOT DETECTED Nasal Parainfluen 1 PCR NOT DETECTED Nasal Parainfluen 2 PCR NOT DETECTED Nasal Parainfluen 3 PCR NOT DETECTED Nasal Parainfluen 4 PCR NOT DETECTED Nasal RSV (PCR) NOT DETECTED Nasal B.pertussis DNA PCR NOT DETECTED Nasal C.pneumoniae (PCR) NOT DETECTED Alexei Human Metapneumo PCR NOT DETECTED Nasal M.pneumoniae (PCR) NOT DETECTED Nasal SARS-CoV-2 (PCR) NOT DETECTED PD Medical Decision Making - ED course Complexity details: considered differential, d/w patient ED course: presents with URI symptoms, household contact recently diagnosed with RSV. Patient has unremarkable exam (bilateral conjuctival injection noted) including lungs CTA bilateral to auscultation. She is in NAD. Respiratory PCR panel is obtained via nasal swab. I offered her opportunity to stay in ED for results, but my recommendation was d/c once swab is obtained with plan that she will be called with any positive result on this swab with understanding that the only potential results that would indicate specific treatment would be influenza and COVID. I also explained that she will not receive a call if the panel is negative for the viruses tested. She is comfortable with this plan. The distinct relation of the chest pain to the coughing is suggestive of non-cardiac etiology and thus no testing indicated at this time regarding the chest pain (such as EKG, troponin). Departure - Departure Disposition: 01 Home, Self Care Clinical Impression: Bronchitis Conjunctivitis Qualifiers: Conjunctivitis type: acute Acute conjunctivitis type: unspecified Laterality: bilateral Qualified Code(s): H10.33 - Unspecified acute conjunctivitis, bilateral Condition: Good Instructions: ED Upper Resp Infec No Abx Tx Comments: Results of your nasal swab are pending. You will be contacted later this morning if the test is positive for any of the viruses that are tested with this swab. If the result is negative for the viruses tested, you will not receive a phone call. Discharge Date/Time: 08/29/22 06:22
[2022-08-29 06:47] LABS: B. PARAPERTUSSIS- RESP PCR PAN NOT DETECTED; B. PERTUSSIS- RESP PCR PANEL NOT DETECTED; C. PNEUMONIAE- RESP PCR PANEL NOT DETECTED; CORONAVIRUS 229E-RESP PCR NOT DETECTED; CORONAVIRUS HKU1-RESP PCR NOT DETECTED; CORONAVIRUS NL63-RESP PCR NOT DETECTED; CORONAVIRUS OC43-RESP PCR NOT DETECTED; HUMAN METAPNEUMOVIRUS NOT DETECTED; INFLUENZA A- RESP PCR PANEL NOT DETECTED; INFLUENZA B - RESP PCR PANEL NOT DETECTED; M. PNEUMONIAE- RESP PCR PANEL NOT DETECTED; PARAINFLUENZA VIRUS 1 NOT DETECTED; PARAINFLUENZA VIRUS 2 NOT DETECTED; PARAINFLUENZA VIRUS 3 NOT DETECTED; PARAINFLUENZA VIRUS 4 NOT DETECTED; RHINOVIRUS/ENTEROVIRUS NOT DETECTED; RSV- RESP PCR PANEL NOT DETECTED; SARS-CoV-2 -RESP PCR PANEL NOT DETECTED
== END 2022-08-29 06:22 | disposition home or self-care (01) ==
LOC: ED 05:08
DX: J40 Bronchitis, not specified as acute or chronic (principal); H10.33 Unspecified acute conjunctivitis, bilateral; Z20.822 Contact with and (suspected) exposure to COVID-19
CPT/HCPCS: 87633; 99282; 99283

== ENCOUNTER 2023-01-08 08:33 | Outpatient (CLI) | payer BC ==
[2023-01-08 08:53] LABS: BASOPHILS % (AUTO) 0.5 %; EOSINOPHILS # (AUTO) 0.2 10^3/uL (0.0-0.7); EOSINOPHILS % (AUTO) 3.4 %; HCT - HEMATOCRIT 45.2 % (37.0-47.0); HGB - HEMOGLOBIN 14.8 g/dL (12.0-16.0); LYMPHOCYTES % (AUTO) 34.8 %; MEAN CORPUSCULAR HEMOGLOBIN 28.9 pg (27.0-31.0); MEAN CORPUSCULAR HGB CONC 32.7 g/dL (32.0-36.0); MEAN CORPUSCULAR VOLUME 88.3 fL (81.0-99.0); MEAN PLATELET VOLUME 9.6 fL (7.9-10.8); MONOCYTES # (AUTO) 0.3 10^3/uL (0.0-1.0); MONOCYTES % (AUTO) 5.8 %; NEUTROPHILS # (AUTO) 3.2 10^3/uL (1.5-6.6); PLT - PLATELET COUNT 255 10^3/uL (130-450); RED BLOOD COUNT 5.12 10^6/uL (4.20-5.40); RED CELL DISTRIBUTION WIDTH 12.3 % (12.0-15.0); WHITE BLOOD COUNT 5.8 x10^3/uL (4.8-10.8)
[2023-01-08 09:12] LABS: ALBUMIN 4.1 g/dL (3.2-5.5); ALBUMIN/GLOBULIN RATIO 1.3 (1.0-2.2); ALKALINE PHOSPHATASE 76 IU/L (42-121); ALT ALANINE AMINOTRANSFERASE 23 IU/L (10-60); AST ASPARTATE AMINOTRANSFERASE 20 IU/L (10-42); BILIRUBIN,TOTAL 0.7 mg/dL (0.2-1.0); BUN - BLOOD UREA NITROGEN 17 mg/dL (6-20); CALCIUM 9.3 mg/dL (8.5-10.3); CARBON DIOXIDE - CO2 29 mmol/L (21-32); CHLORIDE 104 mmol/L (101-111); CHOL/HDL RATIO 3.7 (<4.4); CHOLESTEROL 217 mg/dL; CREATININE 0.8 mg/dL (0.4-1.0); GFR - MDRD 72 (>89); GLUCOSE 115 mg/dL (70-100); HDL CHOLESTEROL 59 mg/dL; LDL CHOLESTEROL,CALCULATED 126 mg/dL; LDL/HDL RATIO 2.1 (<4.4); POTASSIUM 4.1 mmol/L (3.5-5.0); SODIUM 141 mmol/L (135-145); TOTAL PROTEIN 7.2 g/dL (6.7-8.2); TRIGLYCERIDES 161 mg/dL; VLDL CHOLESTEROL 32 mg/dL
[2023-01-08 09:20] LABS: THYROID STIMULATING HORMONE 3.38 uIU/mL (0.34-5.60)
== END 2023-01-08 08:34 | disposition home or self-care (01) ==
LOC: LAB 08:33
PROVIDERS: ATTEND Nurse Practitioner Family
DX: I10 Essential (primary) hypertension (principal); E78.5 Hyperlipidemia, unspecified
CPT/HCPCS: 36415; 80053; 80061; 83721; 84443; 85025

== ENCOUNTER 2023-07-18 07:20 | Outpatient (CLI) | payer BC ==
[2023-07-18 11:01] LABS: ESTIMATED AVERAGE GLUCOSE 97 mg/dL (70-100)
== END 2023-07-18 07:21 | disposition home or self-care (01) ==
LOC: LAB 07:20
PROVIDERS: ATTEND Nurse Practitioner Family
DX: R73.01 Impaired fasting glucose (principal)
CPT/HCPCS: 36415; 83036

== ENCOUNTER 2023-11-21 06:27 | Day surgery (SDC) | payer BC ==
[2023-11-21] MEDS: LACTATED RINGERS 1,000 ML IV ONE (06:37)
[2023-11-21 06:57] VITALS: O2SAT 96
[2023-11-21] MEDS ORDERED: LIDOCAINE-PF 2% 10 ML AMP SUBQ ONE (06:58)
[2023-11-21] MEDS ORDERED: PROPOFOL 500 MG/50 ML 500 MG/50 ML VIAL ONE (06:58)
--- NOTE | 2023-11-21 07:10 | ANESTHESIA ---
Pre-Anesthesia VS, & Labs - Diagnosis HX POLYPS - Procedure COLONOSCOPY Vital Signs: Temp Pulse Resp BP Pulse Ox O2 Flow Rate 36.4 C L 88 19 133/70 H 96 11/21/23 06:38 11/21/23 06:38 11/21/23 06:38 11/21/23 06:38 11/21/23 06:38 Height: 5 ft 1 in Weight (kg): 85 kg Body Mass Index: 35.4 BMI Classification: Obese - NPO Last Fluid Intake: 0500 - Is Patient ?: No Home Medications and Allergies Home Medications: Ambulatory Orders Cholecalciferol (Vitamin D3) [Vitamin D3] 1,000 unit PO DAILY 11/20/23 Naltrexone HCl/Bupropion HCl [Contrave ER 8-90 mg Tablet] 1 each PO DAILY 11/20/23 lisinopriL [Lisinopril] 20 mg PO DAILY 11/20/23 Pravastatin [Pravachol] 20 mg PO DAILY 07/15/17 Levothyroxine [Synthroid] 50 mcg PO QDAC 04/21/18 Cholecalciferol (Vitamin D3) [Vitamin D3] 1,000 unit PO DAILY 11/20/23 Naltrexone HCl/Bupropion HCl [Contrave ER 8-90 mg Tablet] 1 each PO DAILY 11/20/23 lisinopriL [Lisinopril] 20 mg PO DAILY 11/20/23 Allergies/Adverse Reactions: Allergies Allergy/AdvReac Type Severity Reaction Status Date / Time No Known Drug Allergies Allergy Verified 11/21/23 06:56 Anes History & Medical History - Anesthetic History Anesthesia Complications: reports: Post-Operative Nausea/Vomiting Family history of Anesthesia Complications: Denies - Medical History Cardiovascular: reports: None, Hypertension (LISINOPRIL), High cholesterol Pulmonary: reports: None Gastrointestinal: reports: None Urinary: reports: Kidney stones Musculoskeletal: reports: None Endocrine/Autoimmune: reports: HyPOthyroidism Skin: reports: Rosacea Smoking Status: Never smoker Psychosocial: reports: No issues indicated - Surgical History General: reports: Colonoscopy Urologic: reports: Ureterolithotomy (stones) Gynecologic: reports: section Results - EKG Results EKG Comparison: Reviewed EKG (NSR) Exam General: Alert Dental: WNL Mouth Openin Fingerbreadth Neck Mobility: Normal Mallampati classification: III Thyromental Distance: less than 4 cm Plan Anesthesia Type: Total IV Consent for Procedure(s) Verified and Reviewed: Yes Code Status: Attempt Resuscitation ASA classification: 2-Mild systemic disease Is this case an emergency?: No
[2023-11-21] MEDS: ONDANSETRON 4 MG/2 ML VIAL ONE (07:17)
[2023-11-21] MEDS ORDERED: ONDANSETRON 4 MG/2 ML VIAL IVP ONE (07:18)
--- NOTE | 2023-11-21 07:27 | HISTORY & PHYSICAL EXAMINATION ---
Chief Complaint - Chief Complaint Chief Complaint: here for colonoscopy History of Present Illness - History Obtained From Records Reviewed: yes History obtained from: pt Exam Limitations: none - History of Present Illness HPI Comment/Other: history colon polyps including 1 cm polyp hepatic flexure removed piecemeal. 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 Meds/Allgy - Home Medications Home Medications: Ambulatory Orders Medication Instructions Recorded Confirmed Pravastatin [Pravachol] 20 mg PO DAILY 07/15/17 11/20/23 Levothyroxine [Synthroid] 50 mcg PO QDAC 04/21/18 11/20/23 Cholecalciferol (Vitamin D3) 1,000 unit PO DAILY 11/20/23 11/20/23 [Vitamin D3] Naltrexone HCl/Bupropion HCl 1 each PO DAILY 11/20/23 11/20/23 [Contrave ER 8-90 mg Tablet] lisinopriL [Lisinopril] 20 mg PO DAILY 11/20/23 11/20/23 - Allergies Allergies/Adverse Reactions: Allergies Allergy/AdvReac Type Severity Reaction Status Date / Time No Known Drug Allergies Allergy Verified 11/21/23 06:56 Review of Systems - Other Findings Other Findings: 10 pt ros as above otherwise unremarkable Exam - Vital Signs Vital Signs: Vital Signs x48h Temp Pulse Resp BP Pulse Ox 11/21/23 06:38 36.4 C L 88 19 133/70 H 96 - Physical Exam General Appearance: positive: Alert Eyes Bilateral: positive: PERRL, EOMI Neck: positive: No JVD Respiratory: positive: No respiratory distress Cardiovascular: positive: Regular rate & rhythm Abdomen: positive: Non-tender, No distention Neurologic/Psychiatric: positive: Oriented x3 Conclusion/Plan - Problem List (1) Colon cancer screening Conclusion/Plan: plan colonoscopy. parq held and consent obtained
[2023-11-21] MEDS: LACTATED RINGERS 700 ML IV ONE (08:12)
[2023-11-21 08:26] VITALS: BP 105/49
--- NOTE | 2023-11-21 14:24 | ANESTHESIA POST OP EVALUATION ---
Anesthesia Post Eval - Post Anesthesia Eval Vitals: Last Vital Signs Temp 36.5 C 11/21/23 08:12 Pulse 82 11/21/23 08:24 Resp 18 11/21/23 08:24 BP 105/49 L 11/21/23 08:24 Pulse Ox 96 11/21/23 08:24 O2 Flow Rate CV Function Including HR & BP: Stable Pain Control: Satisfactory Nausea & Vomiting: Negative Mental Status: Baseline Respiratory Status: Airway Patent Hydration Status: Satisfactory Anesthesia Complications: None
== END 2023-11-21 06:28 | disposition home or self-care (01) ==
LOC: SDS 06:27
PROVIDERS: ATTEND Surgery
PROC: 0DBL8ZZ Excision of Transverse Colon, Via Natural or Artificial Opening Endoscopic (ICD-10-PCS; principal; 2023-11-21 07:30)
DX: Z12.11 Encounter for screening for malignant neoplasm of colon (principal); D12.3 Benign neoplasm of transverse colon; K60.2 Anal fissure, unspecified; E66.9 Obesity, unspecified; Z68.35 Body mass index [BMI] 35.0-35.9, adult; I10 Essential (primary) hypertension
CPT/HCPCS: 45380; J7120

== ENCOUNTER 2024-01-13 09:35 | Outpatient (CLI) | payer BC ==
[2024-01-13 09:48] LABS: BASOPHILS % (AUTO) 0.5 %; EOSINOPHILS # (AUTO) 0.1 10^3/uL (0.0-0.7); EOSINOPHILS % (AUTO) 1.7 %; HGB - HEMOGLOBIN 14.9 g/dL (12.0-16.0); LYMPHOCYTES # (AUTO) 1.9 10^3/uL (1.5-3.5); LYMPHOCYTES % (AUTO) 29.3 %; MEAN CORPUSCULAR HEMOGLOBIN 28.9 pg (27.0-31.0); MEAN CORPUSCULAR HGB CONC 32.4 g/dL (32.0-36.0); MEAN CORPUSCULAR VOLUME 89.3 fL (81.0-99.0); MEAN PLATELET VOLUME 9.6 fL (7.9-10.8); MONOCYTES # (AUTO) 0.3 10^3/uL (0.0-1.0); NEUTROPHILS # (AUTO) 4.2 10^3/uL (1.5-6.6); NEUTROPHILS % (AUTO) 63.2 %; PLT - PLATELET COUNT 261 10^3/uL (130-450); RED BLOOD COUNT 5.15 10^6/uL (4.20-5.40); RED CELL DISTRIBUTION WIDTH 12.3 % (12.0-15.0); WHITE BLOOD COUNT 6.6 x10^3/uL (4.8-10.8)
[2024-01-13 10:00] LABS: ALBUMIN 4.3 g/dL (3.2-5.5); ALBUMIN/GLOBULIN RATIO 1.5 (1.0-2.2); ALKALINE PHOSPHATASE 65 IU/L (42-121); ALT ALANINE AMINOTRANSFERASE 15 IU/L (10-60); AST ASPARTATE AMINOTRANSFERASE 14 IU/L (10-42); BILIRUBIN,TOTAL 0.6 mg/dL (0.2-1.0); BUN - BLOOD UREA NITROGEN 17 mg/dL (6-20); CALCIUM 9.9 mg/dL (8.5-10.3); CARBON DIOXIDE - CO2 32 mmol/L (21-32); CHLORIDE 104 mmol/L (101-111); CHOL/HDL RATIO 3.4 (<4.4); CHOLESTEROL 172 mg/dL; CREATININE 0.8 mg/dL (0.6-1.3); GFR - MDRD 72 (>89); GLUCOSE 100 mg/dL (74-104); HDL CHOLESTEROL 50 mg/dL; LDL CHOLESTEROL,CALCULATED 94 mg/dL; LDL/HDL RATIO 1.9 (<4.4); POTASSIUM 4.3 mmol/L (3.5-4.5); SODIUM 140 mmol/L (135-145); TOTAL PROTEIN 7.1 g/dL (6.4-8.9); TRIGLYCERIDES 141 mg/dL (48-352); VLDL CHOLESTEROL 28 mg/dL
[2024-01-13 10:15] LABS: THYROID STIMULATING HORMONE 2.53 uIU/mL (0.34-5.60)
== END 2024-01-13 09:36 | disposition home or self-care (01) ==
LOC: LAB 09:35
PROVIDERS: ATTEND Nurse Practitioner Family
DX: I10 Essential (primary) hypertension (principal); E78.5 Hyperlipidemia, unspecified; E03.9 Hypothyroidism, unspecified
CPT/HCPCS: 36415; 80053; 80061; 83721; 84443; 85025

== ENCOUNTER 2024-05-20 11:32 | Outpatient (CLI) | payer MEDICARE, OTHER ==
[2024-05-20 12:11] LABS: THYROID STIMULATING HORMONE 1.97 uIU/mL (0.34-5.60)
== END 2024-05-20 11:33 | disposition home or self-care (01) ==
LOC: LAB 11:32
PROVIDERS: ATTEND Physician Assistant
DX: E03.9 Hypothyroidism, unspecified (principal)
CPT/HCPCS: 36415; 84439; 84443; 84481